=== PATIENT | male | born 1955 | race Caucasian/White ===

== ENCOUNTER → 2017-01-04 | Outpatient (CLI) | payer OTHER ==
[~2017-01-04] MED LIST: ANAPROX DS550 MG PO; ASPIRIN81 M1 PO; COZAAR50 MG PO; CRESTOR20 MG PO; HYDROCODONE BIT1 T11 PO; LOPRESSOR25 MG PO; LOSARTAN POTAS100 M1 PO; Orphenadrine C100 MG PO; VITAMIN C500 MG PO; VITAMIN E NATU PO; VITAMIN E-400200 IU PO
== END | disposition home or self-care (01) ==
LOC: CT 09:50
DX: Z12.2 Encounter for screening for malignant neoplasm of respiratory organs (principal); F17.200 Nicotine dependence, unspecified, uncomplicated

== ENCOUNTER → 2023-05-27 | Outpatient (CLI) | payer MEDICARE, OTHER | END | disposition home or self-care (01) | LOC: LAB 10:15 | PROVIDERS: ATTEND Family Medicine | DX: E83.52 Hypercalcemia (principal) ==

== ENCOUNTER 2024-03-08 13:14 | Emergency (ER) | payer MEDICARE, OTHER ==
[~2024-03-08] VITALS: Ht 172.7 cm; Wt 90.7 kg
== END 2024-03-08 14:15 | disposition home or self-care (01) ==
LOC: ED 13:14
DX: H53.8 Other visual disturbances (principal); I10 Essential (primary) hypertension; E78.5 Hyperlipidemia, unspecified; I25.2 Old myocardial infarction; Z91.041 Radiographic dye allergy status; Z88.8 Allergy status to other drugs, medicaments and biological substances; Z98.890 Other specified postprocedural states

== ENCOUNTER → 2024-03-10 | Outpatient (CLI) | payer MEDICARE, OTHER ==
[~2024-03-10] MED LIST changes: +GADOTERATE MEGLUMINE 10 MMOL/20 ML VIAL IV ONE
== END | disposition home or self-care (01) ==
LOC: MRI 01:55
PROVIDERS: ATTEND Family Medicine
DX: I63.9 Cerebral infarction, unspecified (principal)

== ENCOUNTER → 2024-03-12 | Outpatient (CLI) | payer MEDICARE, OTHER ==
[~2024-03-12] MED LIST changes: -GADOTERATE MEGLUMINE 10 MMOL/20 ML VIAL IV ONE
== END | disposition home or self-care (01) ==
LOC: LAB 08:06
PROVIDERS: ATTEND Family Medicine
DX: J44.9 Chronic obstructive pulmonary disease, unspecified (principal); N40.1 Benign prostatic hyperplasia with lower urinary tract symptoms; R91.8 Other nonspecific abnormal finding of lung field; Z87.891 Personal history of nicotine dependence

== ENCOUNTER → 2024-04-10 | Outpatient (CLI) | payer MEDICARE, OTHER | END | disposition home or self-care (01) | LOC: US 11:30 | PROVIDERS: ATTEND Family Medicine | DX: I82.451 Acute embolism and thrombosis of right peroneal vein (principal); I82.441 Acute embolism and thrombosis of right tibial vein; M79.604 Pain in right leg ==

== ENCOUNTER → 2024-06-22 | Outpatient (CLI) | payer MEDICARE, OTHER ==
[2024-06-22 10:13] LABS: HEMATOCRIT 39.8 % (42.0-52.0); MEAN CELL VOLUME 87.7 fl (80.0-94.0); MEAN CORPUSCULAR HGB CONC 29.6 g/dl (33.0-37.0); MEAN PLATELET VOLUME 9.6 fl (9.6-12.3); RED BLOOD COUNT 4.54 10*6/uL (4.50-5.90); RED CELL DISTRI WIDTH 17.4 % (0-14.5); WHITE BLOOD COUNT 6.5 10*3/uL (4.8-10.8)
[2024-06-22 10:25] LABS: ALKALINE PHOSPHATASE 130 U/L (46-116); BUN 10 mg/dl (9-23); CHLORIDE 106 mmol/L (98-107); POTASSIUM 3.9 mmol/L (3.4-5.1); SGPT/ALT 14 U/L (5-49); TOTAL PROTEIN 6.9 gm/dL (6.0-8.0)
== END | disposition home or self-care (01) ==
LOC: LAB 08:44
PROVIDERS: ATTEND Family Medicine
DX: Z12.2 Encounter for screening for malignant neoplasm of respiratory organs (principal); J44.9 Chronic obstructive pulmonary disease, unspecified; D64.9 Anemia, unspecified; J18.9 Pneumonia, unspecified organism

== ENCOUNTER 2025-04-19 11:38 | Emergency (ER) | payer MEDICARE, OTHER ==
[2025-04-19] VITALS (14 sets, daily range): BP systolic 117–140; BP diastolic 55–76
[~2025-04-19] VITALS: Ht 160 cm; Wt 77.1 kg
[2025-04-19] MEDS ORDERED: CETIRIZINE10 MG PO (11:49)
[2025-04-19] MEDS ORDERED: VITAMIN D325 MCG PO (11:50)
[2025-04-19] MEDS ORDERED: CITALOPRAM10 MG PO (11:51)
[2025-04-19] MEDS ORDERED: Clopidogrel75 MG PO (11:52)
[2025-04-19] MEDS ORDERED: Lovenox80 MG/0.8 SC (11:53)
[2025-04-19] MEDS ORDERED: ROSUVASTATIN CA10 MG PO (11:55)
[2025-04-19] MEDS ORDERED: FOLIC ACID0.8 M1 PO (12:00)
[2025-04-19 12:11] LABS: MEAN CELL VOLUME 77.2 fl (80.0-94.0); MEAN CORPUSCULAR HGB 21.8 pg (27.0-31.0); MEAN PLATELET VOLUME 9.6 fl (9.6-12.3); NUCLEATED RED BLOOD CELL 0.0 % (0.0-0.0); NUCLEATED RED BLOOD CELL 0.0 10*3/uL (0.0-0.0); PLATELET COUNT AUTOMATED 220 10*3/uL (130-400); RED CELL DISTRI WIDTH 16.6 % (0-14.5)
[2025-04-19 12:15] LABS: MANUAL DIFF REFLEX YES
[2025-04-19 12:21] LABS: ACT PARTIAL THROMBO TIME 29.1 SECONDS (20.0-32.1)
[2025-04-19 12:32] LABS: DOHLE BODIES FEW
[2025-04-19 12:33] LABS: PLATELET SUFFICIENCY NORMAL (NORMAL)
[2025-04-19 12:39] LABS: BUN 22 mg/dl (9-23)
[2025-04-19] MEDS ORDERED: SODIUM CHLORIDE 0.9% 500 ML IV ONE ×2 (14:43→23:06)
[2025-04-20] VITALS: BP 129/59
[2025-04-20 01:00] VITALS: BP 135/68
[2025-04-20 01:30] VITALS: BP 133/68
== END 2025-04-20 01:51 | disposition short-term general hospital (02) ==
LOC: ED 11:38
PROVIDERS: Nurse Practitioner Family
DX: K92.2 Gastrointestinal hemorrhage, unspecified (principal); R07.89 Other chest pain; R79.89 Other specified abnormal findings of blood chemistry; D50.8 Other iron deficiency anemias